=== PATIENT | female | born 1985 | race Caucasian/White ===

== ENCOUNTER 2016-12-01 15:41 | Emergency (ER) | payer MEDICARE, MEDICAID ==
[~2016-12-01] VITALS: Ht 162.6 cm; Wt 99.8 kg
[~2016-12-01 15:41] MED LIST: LEVO88TA4 PO; METF500T4 PO; PRAV10TA2 PO; RANI150C PO; SERT50TA5 PO; TRAZ100T15 PO
[2016-12-01 15:42] VITALS: BP 122/84
[2016-12-01] MEDS ORDERED: KETOROLAC 30 MG/1 ML ONE (16:21)
[2016-12-01] MEDS ORDERED: KETOROLAC 30 MG/1 ML IM ONE (16:30)
== END 2016-12-01 17:02 | disposition home or self-care (01) ==
LOC: ED 16:38
DX: S50.11XA Contusion of right forearm, initial encounter (principal); F17.200 Nicotine dependence, unspecified, uncomplicated; W23.0XXA Caught, crushed, jammed, or pinched between moving objects, initial encounter; Y93.89 Activity, other specified; Y99.8 Other external cause status; Y92.009 Unspecified place in unspecified non-institutional (private) residence as the place of occurrence of the external cause
CPT/HCPCS: 73090; 96372; 99284; J1885

== ENCOUNTER → 2017-02-08 | Outpatient (CLI) | payer MEDICARE, MEDICAID | LOC: CFH 12:57 | PROVIDERS: ATTEND Family Medicine | DX: Z12.31 Encounter for screening mammogram for malignant neoplasm of breast (principal) | CPT/HCPCS: G0202 ==

== ENCOUNTER 2018-05-21 12:45 | Emergency (ER) | payer MEDICARE, MEDICAID ==
[~2018-05-21] VITALS: Ht 165.1 cm; Wt 111.0 kg
[~2018-05-21 12:45] MED LIST changes: +METF500T17 PO; -METF500T4 PO; +SERT50TA28 PO; -SERT50TA5 PO; +TRAZ-137 PO; -TRAZ100T15 PO
[2018-05-21] MEDS ORDERED: SODIUM CHLORIDE 0.9% 1,000ML IVBOLUS ONE (14:00)
[2018-05-21] MEDS ORDERED: DIPHENHYDRAMINE 50 MG/ML, 1ML IVPush ONE (14:00)
[2018-05-21] MEDS ORDERED: KETOROLAC 30 MG/1 ML IVPush ONE (14:00)
[2018-05-21] MEDS ORDERED: METOCLOPRAMIDE 5 MG/ML, 2ML IVPush ONE (14:00)
--- NOTE | 2018-05-21 14:06 | NUR ---
pt upright on gurney awake & calm, responds approp to staff, NAD, comfort measures provided, call light within reach.
[2018-05-21] MEDS ORDERED: DIPHENHYDRAMINE 50 MG/ML, 1ML ONE (14:10)
[2018-05-21] MEDS ORDERED: METOCLOPRAMIDE 5 MG/ML, 2ML ONE (14:10)
[2018-05-21] MEDS ORDERED: KETOROLAC 30 MG/1 ML ONE (14:10)
[2018-05-21 14:33] LABS: BASOPHILS # (AUTO) 0.03 x10^3/uL (0-0.1); BASOPHILS % (AUTO) 0 % (0-1); EOSINOPHILS # (AUTO) 0.05 x10^3/uL (0-0.4); EOSINOPHILS % (AUTO) 1 % (1-7); LYMPHOCYTES % (AUTO) 21 % (22-44); MD NO; MEAN CORPUSCULAR HEMOGLOBIN 23.3 pg (27.0-34.8); MEAN CORPUSCULAR HGB CONC 31.3 g/dL (32.4-35.8); MEAN CORPUSCULAR VOLUME 74.5 fL (80-100); MEAN PLATELET VOLUME 8.7 fL (7.4-10.4); MONOCYTES # (AUTO) 0.41 x10^3/uL (0.2-0.8); MONOCYTES % (AUTO) 4 % (2-9); NEUTROPHILS # (AUTO) 6.94 x10^3/uL (1.8-6.8); NEUTROPHILS % (AUTO) 74 % (42-75); PLATELET COUNT 483 x10^3/uL (130-400); RED BLOOD COUNT 4.51 x10^6/uL (3.82-5.3); RED CELL DISTRIBUTION WIDTH 16.1 % (9.6-15.2)
[2018-05-21 14:43] LABS: ALANINE AMINOTRANSFERASE 13 U/L (12-78); ALBUMIN 3.3 g/dL (3.4-5.0); ANION GAP 9 mmol/L (5-15); CALCIUM 9.6 mg/dL (8.5-10.1); CHLORIDE 107 mmol/L (98-107); CREATININE 0.69 mg/dL (0.55-1.02)
[2018-05-21 14:52] LABS: MICROSCOPIC AUTO
[2018-05-21 14:54] LABS: ALKALINE PHOSPHATASE 95 U/L (45-117); BILIRUBIN,TOTAL 0.1 mg/dL (0.2-1.0); FREE T4 (FREE THYROXINE) 0.77 ng/dL (0.76-1.46); TOTAL PROTEIN 7.3 g/dL (6.4-8.2)
[2018-05-21 15:03] LABS: AMPHETAMINE SCREEN, URINE Negative (Negative); BARBITURATE SCREEN, URINE Positive (Negative); BENZODIAZEPINE SCREEN, URINE Negative (Negative); CANNABINOID SCREEN, URINE Negative (Negative); COCAINE SCREEN, URINE Negative (Negative); METHADONE SCREEN, URINE Negative (Negative); OPIATE SCREEN, URINE Negative (Negative)
[2018-05-21 15:04] LABS: CULTURE INDICATED? YES
[2018-05-21 15:05] VITALS: BP 143/86
--- NOTE | 2018-05-21 15:05 | NUR ---
pt remains upright on gurney awake & more comfortable after meds, responds approp to staff, NAD, comfort measures provided, call light within reach.
--- NOTE | 2018-05-21 15:57 | NUR ---
Patient given discharge instructions and they have confirmed that they understand the instructions. Patient ambulatory with steady gait.
== END 2018-05-21 15:58 | disposition home or self-care (01) ==
LOC: ED 15:31
DX: G43.019 Migraine without aura, intractable, without status migrainosus (principal); E78.00 Pure hypercholesterolemia, unspecified; E03.9 Hypothyroidism, unspecified; E11.9 Type 2 diabetes mellitus without complications; Z88.5 Allergy status to narcotic agent; Z88.0 Allergy status to penicillin
CPT/HCPCS: 36415; 80053; 80307; 81001; 84439; 84443; 85025; 87077; 87086; 93005; 96374; 96375; 99284; J1200; J1885; J2765; J7030

== ENCOUNTER 2018-07-10 01:55 | Emergency (ER) | payer MEDICARE, MEDICAID ==
[~2018-07-10] VITALS: Ht 157.5 cm; Wt 99.0 kg
--- NOTE | 2018-07-10 02:16 | NUR ---
SEEN HERE EARLIER TONIGHT FOR MARTINEZ AND N/V. GIVEN ZOFRAN FOR PRESCRIPTION. STATES MARTINEZ STILL THERE. per triage note
[2018-07-10 02:23] VITALS: BP 162/96
[2018-07-10] MEDS ORDERED: AMIT25TA PO (02:27)
[2018-07-10] MEDS ORDERED: SODIUM CHLORIDE 0.9% 1,000ML IVBOLUS ONE (02:30)
[2018-07-10] MEDS ORDERED: KETOROLAC 30 MG/1 ML IVPush ONE (02:30)
[2018-07-10] MEDS ORDERED: METOCLOPRAMIDE 5 MG/ML, 2ML IVPush ONE (02:30)
[2018-07-10] MEDS ORDERED: SODIUM CHLORIDE FLUSH 10ML SYR IVF ONE (02:30)
[2018-07-10] MEDS ORDERED: DIPHENHYDRAMINE 50 MG/ML, 1ML IVPush ONE (02:30)
--- NOTE | 2018-07-10 02:50 | NUR ---
IV ACESS OBTAINED, NS BOLUS STARTED, PT MEDICATER PER eMAR
[2018-07-10] MEDS ORDERED: METOCLOPRAMIDE 5 MG/ML, 2ML ONE (02:59)
[2018-07-10] MEDS ORDERED: KETOROLAC 30 MG/1 ML ONE (02:59)
[2018-07-10] MEDS ORDERED: DIPHENHYDRAMINE 50 MG/ML, 1ML ONE (02:59)
== END 2018-07-10 03:58 | disposition home or self-care (01) ==
LOC: ED 03:52
DX: G43.C1 Periodic headache syndromes in child or adult, intractable (principal); R11.2 Nausea with vomiting, unspecified; E78.00 Pure hypercholesterolemia, unspecified; E11.9 Type 2 diabetes mellitus without complications; E03.9 Hypothyroidism, unspecified; G43.909 Migraine, unspecified, not intractable, without status migrainosus; Z88.5 Allergy status to narcotic agent; Z88.0 Allergy status to penicillin
CPT/HCPCS: 70450; 96361; 96374; 96375; 99284; J1200; J1885; J2765; J7030

== ENCOUNTER 2019-03-13 20:03 | Emergency (ER) | payer MEDICARE, MEDICAID ==
[~2019-03-13] VITALS: Ht 160 cm; Wt 118.6 kg
[~2019-03-13 20:03] MED LIST changes: +AMIT25TA PO
[2019-03-13 20:05] VITALS: BP 158/84
[2019-03-13] MEDS ORDERED: DEXAMETHASONE 4 MG TABLET PO ONE (20:30)
[2019-03-13] MEDS ORDERED: DEXAMETHASONE 4 MG TABLET ONE (20:55)
== END 2019-03-13 21:51 ==
LOC: ED 21:24
DX: H65.02 Acute serous otitis media, left ear (principal); E03.9 Hypothyroidism, unspecified; G43.909 Migraine, unspecified, not intractable, without status migrainosus; E78.00 Pure hypercholesterolemia, unspecified
CPT/HCPCS: 71045; 99283

== ENCOUNTER 2020-11-21 13:57 | Emergency (ER) | payer MEDICARE, MEDICAID ==
[~2020-11-21 13:57] MED LIST changes: -TRAZ-137 PO; +TRAZ-175 PO
[2020-11-21] MEDS ORDERED: KETOROLAC 30 MG/1 ML IVPush ONE (14:30)
[2020-11-21] MEDS ORDERED: SODIUM CHLORIDE FLUSH 10ML SYR IVF ONE (14:30)
[2020-11-21] MEDS ORDERED: SODIUM CHLORIDE 0.9% 1,000ML IVBOLUS ONE (14:30)
[2020-11-21] MEDS ORDERED: METOCLOPRAMIDE 5 MG/ML, 2ML IVPush ONE (14:30)
[2020-11-21] MEDS ORDERED: DIPHENHYDRAMINE 50 MG/ML, 1ML IVPush ONE (14:30)
--- NOTE | 2020-11-21 14:47 | NUR ---
PT OOB TO RESTROOM.
[2020-11-21] MEDS ORDERED: KETOROLAC 30 MG/1 ML ONE (15:03)
[2020-11-21] MEDS ORDERED: METOCLOPRAMIDE 5 MG/ML, 2ML ONE (15:03)
[2020-11-21] MEDS ORDERED: DIPHENHYDRAMINE 50 MG/ML, 1ML ONE (15:03)
[2020-11-21 16:02] VITALS: BP 153/83
== END 2020-11-21 16:45 | disposition home or self-care (01) ==
LOC: ED 14:27 → MERGE 14:27 → ED 16:45
DX: G43.009 Migraine without aura, not intractable, without status migrainosus (principal)
CPT/HCPCS: 96361; 96374; 96375; 99284; J1200; J1885; J2765; J7030